=== PATIENT | male | born 1960 | race Caucasian/White ===

== ENCOUNTER → 2017-08-26 | Outpatient (CLI) | payer BC | END | disposition home or self-care (01) | LOC: LABWHC1 12:20 | PROVIDERS: ATTEND Internal Medicine Cardiovascular Disease | DX: E78.5 Hyperlipidemia, unspecified (principal) | CPT/HCPCS: 36415; 83704 ==

== ENCOUNTER 2017-11-10 13:34 | Emergency (ER) | payer BC ==
[2017-11-10 13:51] VITALS: RESP 18; TEMP 98.3
[2017-11-10 14:25] LABS: Basophils % (A) 0 %; Eosinophils # (A) 0.1 k/uL (0-0.7); Eosinophils % (A) 2 %; HCT 49.2 % (39.0-53.0); HGB 16.4 gm/dL (13.0-17.5); Lymphocytes # (A) 1.9 k/uL (1.0-4.8); Lymphocytes % (A) 33 %; MCH 29.8 pg (25.0-35.0); MCHC 33.4 g/dL (31.0-37.0); MCV 89.4 fL (80.0-100.0); Mean Platelet Volume 7.2; Monocytes # (A) 0.3 k/uL (0-1.0); Monocytes % (A) 5 %; Neutrophils # (A) 3.3 k/uL (1.3-7.7); Neutrophils % (A) 58 %; Platelet Count 250 k/uL (150-450); RBC 5.51 m/uL (4.30-5.90); RDW 13.3 % (11.5-15.5); WBC 5.7 k/uL (3.8-10.6)
--- NOTE | 2017-11-10 14:34 | ED ---
General Adult HPI - General Chief complaint: Chest Pain Stated complaint: chest pain Time Seen by Provider: 11/10/17 14:06 Source: patient, RN notes reviewed, old records reviewed Mode of arrival: wheelchair Limitations: no limitations - History of Present Illness Initial comments: 56-year-old male presents for evaluation of chest pain. Pain began approximately 2 hours prior to arrival. This was a single episode of sharp central chest pain. No radiation. No nausea vomiting. No diaphoresis. Episode lasted just seconds. Describes pain as moderate. Patient has no known history of coronary artery disease. No history of DVT or PE. He is quite active, runs on the treadmill, does not experience pain with activity. No dyspnea. No abdominal pain. Patient is chest pain-free at the time my evaluation. Episode lasted just seconds. - Related Data Home Medications Medication Instructions Recorded Confirmed Simvastatin 40 mg PO HS 11/10/17 11/10/17 Allergies Allergy/AdvReac Type Severity Reaction Status Date / Time almond Allergy Anaphylaxis Verified 11/10/17 14:39 Review of Systems ROS Statement: Those systems with pertinent positive or pertinent negative responses have been documented in the HPI. ROS Other: All systems not noted in ROS Statement are negative. Past Medical History Past Medical History: Hyperlipidemia, Thyroid Disorder History of Any Multi-Drug Resistant Organisms: None Reported Past Surgical History: Appendectomy, Tonsillectomy Past Psychological History: No Psychological Hx Reported Smoking Status: Light tobacco smoker Past Alcohol Use History: Occasional Past Drug Use History: None Reported General Exam Limitations: no limitations General appearance: alert, in no apparent distress Head exam: Present: atraumatic, normocephalic Eye exam: Present: normal appearance, PERRL ENT exam: Present: normal exam Neck exam: Present: normal inspection. Absent: tenderness, meningismus Respiratory exam: Present: normal lung sounds bilaterally. Absent: respiratory distress, wheezes, chest wall tenderness Cardiovascular Exam: Present: regular rate, normal rhythm GI/Abdominal exam: Present: soft. Absent: distended, tenderness, guarding Extremities exam: Present: normal inspection, normal capillary refill, other ( Bilateral radial pulses 2+). Absent: pedal edema Back exam: Present: normal inspection Neurological exam: Present: alert, oriented X3, CN II-XII intact. Absent: motor sensory deficit Psychiatric exam: Present: normal affect, normal mood Skin exam: Present: warm, dry, intact. Absent: cyanosis, diaphoretic Course Vital Signs 11/10/17 11/10/17 13:47 14:43 Temperature 98.3 F Pulse Rate 85 75 Respiratory 18 18 Rate Blood Pressure 171/88 149/75 O2 Sat by Pulse 100 98 Oximetry EKG Findings - EKG Comments: EKG Findings:: EKG: Normal sinus rhythm with sinus arrhythmia, rate of 74, OK interval 172, QRS duration 114, QTC 417. No ST segment elevation or depression , T waves are upright Medical Decision Making - Medical Decision Making 56-year-old male with an episode of central chest pain. Pain was moderate, lasted several seconds, resolved at the time my evaluation. Patient has no complaints. EKG is nonischemic. Chest x-ray negative for airspace disease, pneumothorax. CBC within normal limits, d-dimer is negative, electrolytes within normal limits, troponin is negative. Heart score is 2, for age and risk factors. Patient is reevaluated, stable vital signs, he has no pain. He did not require any pain medication the emergency department. He is offered observation for serial cardiac enzymes and cardiology consultation. He declines. He prefers outpatient follow-up. He is informed that this is likely not his heart but complete testing of his heart has not been performed in the emergency department. Diagnosis: Episode of chest pain. - Lab Data Result diagrams: 11/10/17 14:08 11/10/17 14:08 Lab Results 11/10/17 11/10/17 11/10/17 Range/Units 14:08 14:08 14:08 WBC 5.7 (3.8-10.6) k/uL RBC 5.51 (4.30-5.90) m/uL Hgb 16.4 (13.0-17.5) gm/dL Hct 49.2 (39.0-53.0) % MCV 89.4 (80.0-100.0) fL MCH 29.8 (25.0-35.0) pg MCHC 33.4 (31.0-37.0) g/dL RDW 13.3 (11.5-15.5) % Plt Count 250 (150-450) k/uL Neutrophils % 58 % Lymphocytes % 33 % Monocytes % 5 % Eosinophils % 2 % Basophils % 0 % Neutrophils # 3.3 (1.3-7.7) k/uL Lymphocytes # 1.9 (1.0-4.8) k/uL Monocytes # 0.3 (0-1.0) k/uL Eosinophils # 0.1 (0-0.7) k/uL Basophils # 0.0 (0-0.2) k/uL PT (9.0-12.0) sec INR (<1.2) APTT (22.0-30.0) sec D-Dimer (<0.60) mg/L FEU Sodium 141 (137-145) mmol/L Potassium 4.2 (3.5-5.1) mmol/L Chloride 109 H (98-107) mmol/L Carbon Dioxide 25 (22-30) mmol/L Anion Gap 7 mmol/L BUN 11 (9-20) mg/dL Creatinine 0.90 (0.66-1.25) mg/dL Est GFR (CKD-EPI)AfAm >90 (>60 ml/min/1.73 sqM) Est GFR (CKD-EPI)NonAf >90 (>60 ml/min/1.73 sqM) Glucose 135 H (74-99) mg/dL Calcium 9.2 (8.4-10.2) mg/dL Magnesium 1.9 (1.6-2.3) mg/dL Total Bilirubin 0.5 (0.2-1.3) mg/dL AST 31 (17-59) U/L ALT 46 (21-72) U/L Alkaline Phosphatase 63 (38-126) U/L Total Creatine Kinase 133 (55-170) U/L CK-MB (CK-2) 0.7 (0.0-2.4) ng/mL CK-MB (CK-2) Rel Index 0.5 Troponin I <0.012 (0.000-0.034) ng/mL NT-Pro-B Natriuret Pep pg/mL Total Protein 6.6 (6.3-8.2) g/dL Albumin 4.2 (3.5-5.0) g/dL Lipase 246 (23-300) U/L 11/10/17 11/10/17 Range/Units 14:08 14:08 WBC (3.8-10.6) k/uL RBC (4.30-5.90) m/uL Hgb (13.0-17.5) gm/dL Hct (39.0-53.0) % MCV (80.0-100.0) fL MCH (25.0-35.0) pg MCHC (31.0-37.0) g/dL RDW (11.5-15.5) % Plt Count (150-450) k/uL Neutrophils % % Lymphocytes % % Monocytes % % Eosinophils % % Basophils % % Neutrophils # (1.3-7.7) k/uL Lymphocytes # (1.0-4.8) k/uL Monocytes # (0-1.0) k/uL Eosinophils # (0-0.7) k/uL Basophils # (0-0.2) k/uL PT 9.9 (9.0-12.0) sec INR 1.0 (<1.2) APTT 22.6 (22.0-30.0) sec D-Dimer 0.22 (<0.60) mg/L FEU Sodium (137-145) mmol/L Potassium (3.5-5.1) mmol/L Chloride (98-107) mmol/L Carbon Dioxide (22-30) mmol/L Anion Gap mmol/L BUN (9-20) mg/dL Creatinine (0.66-1.25) mg/dL Est GFR (CKD-EPI)AfAm (>60 ml/min/1.73 sqM) Est GFR (CKD-EPI)NonAf (>60 ml/min/1.73 sqM) Glucose (74-99) mg/dL Calcium (8.4-10.2) mg/dL Magnesium (1.6-2.3) mg/dL Total Bilirubin (0.2-1.3) mg/dL AST (17-59) U/L ALT (21-72) U/L Alkaline Phosphatase (38-126) U/L Total Creatine Kinase (55-170) U/L CK-MB (CK-2) (0.0-2.4) ng/mL CK-MB (CK-2) Rel Index Troponin I (0.000-0.034) ng/mL NT-Pro-B Natriuret Pep 76 pg/mL Total Protein (6.3-8.2) g/dL Albumin (3.5-5.0) g/dL Lipase (23-300) U/L Disposition Clinical Impression: Chest pain Disposition: HOME SELF-CARE Condition: Good Instructions: Chest Pain (ED) Is patient prescribed a controlled substance at d/c from ED?: No Referrals: Yessy Pierre MD [Primary Care Provider] - 1-2 days Radha Khan MD [STAFF PHYSICIAN] - 1-2 days Time of Disposition: 15:15
[2017-11-10 14:37] LABS: ALT 46 U/L (21-72); AST 31 U/L (17-59); Albumin 4.2 g/dL (3.5-5.0); Alkaline Phosphatase 63 U/L (38-126); Anion Gap 7 mmol/L; Blood Urea Nitrogen 11 mg/dL (9-20); Calcium 9.2 mg/dL (8.4-10.2); Carbon Dioxide 25 mmol/L (22-30); Chloride 109 mmol/L (98-107); D-Dimer 0.22 mg/L FEU (<0.60); Glucose 135 mg/dL (74-99); Lipase 246 U/L (23-300); Magnesium 1.9 mg/dL (1.6-2.3); Partial Thromboplastin Time 22.6 sec (22.0-30.0); Potassium 4.2 mmol/L (3.5-5.1); Prothrombin Time 9.9 sec (9.0-12.0); Sodium 141 mmol/L (137-145); Total Bilirubin 0.5 mg/dL (0.2-1.3); Total Protein 6.6 g/dL (6.3-8.2)
--- NOTE | 2017-11-10 14:45 | XR ---
EXAMINATION TYPE: XR chest 2V DATE OF EXAM: 11/10/2017 COMPARISON: Chest x-ray September 13, 2011 HISTORY: Chest pain. TECHNIQUE: Frontal and lateral views of the chest are obtained. FINDINGS: There is no focal air space opacity, pleural effusion, or pneumothorax seen. The cardiac silhouette size is within normal limits. The osseous structures are intact. IMPRESSION: No acute process. No significant change from prior.
[2017-11-10 14:51] LABS: Creatine Kinase 133 U/L (55-170)
[2017-11-10 15:02] LABS: Creatine Kinase MB 0.7 ng/mL (0.0-2.4); Troponin I <0.012 ng/mL (0.000-0.034)
[2017-11-10 15:41] VITALS: BP 153/77; PULSE 63
== END 2017-11-10 15:40 | disposition home or self-care (01) ==
LOC: EC 13:34
DX: R07.9 Chest pain, unspecified (principal); E78.5 Hyperlipidemia, unspecified; F17.200 Nicotine dependence, unspecified, uncomplicated; Z79.899 Other long term (current) drug therapy; Z91.018 Allergy to other foods
CPT/HCPCS: 36415; 71046; 80053; 82550; 82553; 83690; 83735; 83880; 84484; 85025; 85379; 85610; 85730; 99285

== ENCOUNTER 2019-02-16 04:24 | Emergency (ER) | payer BC ==
[2019-02-16 04:34] VITALS: BP 154/89; PULSE 92; RESP 18; TEMP 98.7
[2019-02-16] MEDS ORDERED: TRANEXAMIC ACID 1,000 MG in SODIUM CHLORIDE 0.9% 100 ML IVPB ONE (04:49)
--- NOTE | 2019-02-16 04:53 | ED ---
General Adult HPI - General Chief complaint: Recheck/Abnormal Lab/Rx Stated complaint: hemorrhoids Time Seen by Provider: 02/16/19 04:42 Source: patient Mode of arrival: ambulatory Limitations: no limitations - History of Present Illness Initial comments: This patient is a 58-year-old man who presents to be evaluated for a hemorrhoid that is bleeding. Patient noticed that he had developed swelling and tender hemorrhoid on . He states that he had taken a bath yesterday and then it had seemed to rupture. He states this has happened previously and he has had bleeding go on for about an hour. With this hemorrhoid the bleeding has continued through to this morning. He was concerned that it was bleeding for 2 long. He states that it will stop a bit but then when he has bowel movement there is further bleeding. Patient is denying symptoms of anemia, including no orthostatic type symptoms. No lightheadedness, chest pain, dyspnea, pal pitations or syncope. No diaphoresis, nausea or vomiting. There is no abdominal pain. He states that the pain related to the hemorrhoid had stopped. -: days(s) Location: buttocks Radiation: non-radiation Improves with: none Worsens with: none Treatments Prior to Arrival: none - Related Data Home Medications Medication Instructions Recorded Confirmed Simvastatin 40 mg PO HS 11/10/17 11/10/17 Previous Rx's Medication Instructions Recorded Hydrocortisone Pr Cream 1 applic RECTAL BID #1 tube 02/16/19 [Proctosol-Hc 2.5%] Allergies Allergy/AdvReac Type Severity Reaction Status Date / Time almond Allergy Anaphylaxis Verified 02/16/19 04:34 Review of Systems ROS Statement: Those systems with pertinent positive or pertinent negative responses have been documented in the HPI. ROS Other: All systems not noted in ROS Statement are negative. Constitutional: Denies: fever, chills Respiratory: Denies: cough, dyspnea Cardiovascular: Denies: chest pain, palpitations, syncope Gastrointestinal: Denies: abdominal pain, nausea, vomiting Hematological/Lymphatic: Denies: easy bleeding Past Medical History Past Medical History: Hyperlipidemia, Thyroid Disorder History of Any Multi-Drug Resistant Organisms: None Reported Past Surgical History: Appendectomy, Tonsillectomy Past Psychological History: No Psychological Hx Reported Smoking Status: Light tobacco smoker Past Alcohol Use History: Occasional Past Drug Use History: None Reported General Exam Limitations: no limitations General appearance: alert, in no apparent distress Respiratory exam: Present: normal lung sounds bilaterally. Absent: respiratory distress, wheezes, rales, rhonchi, stridor Cardiovascular Exam: Present: regular rate, normal rhythm, normal heart sounds. Absent: systolic murmur, diastolic murmur, rubs, gallop GI/Abdominal exam: Present: soft. Absent: distended, tenderness, guarding, rebound, pulsatile mass Rectal exam: Present: hemorrhoids (Patient does have an approximately 1 cm external hemorrhoid which has had some recent bleeding but there is currently no active blood.) Skin exam: Present: warm, dry, intact, normal color. Absent: rash Course Vital Signs 02/16/19 04:31 Temperature 98.7 F Pulse Rate 92 Respiratory 18 Rate Blood Pressure 154/89 O2 Sat by Pulse 100 Oximetry Medical Decision Making - Lab Data Result diagrams: 02/16/19 05:07 Lab Results 02/16/19 02/16/19 Range/Units 05:07 05:07 WBC 6.6 (3.8-10.6) k/uL RBC 5.21 (4.30-5.90) m/uL Hgb 16.0 (13.0-17.5) gm/dL Hct 47.0 (39.0-53.0) % MCV 90.1 (80.0-100.0) fL MCH 30.6 (25.0-35.0) pg MCHC 34.0 (31.0-37.0) g/dL RDW 12.6 (11.5-15.5) % Plt Count 246 (150-450) k/uL Neutrophils % 67 % Lymphocytes % 24 % Monocytes % 6 % Eosinophils % 1 % Basophils % 0 % Neutrophils # 4.4 (1.3-7.7) k/uL Lymphocytes # 1.6 (1.0-4.8) k/uL Monocytes # 0.4 (0-1.0) k/uL Eosinophils # 0.1 (0-0.7) k/uL Basophils # 0.0 (0-0.2) k/uL PT 10.2 (9.0-12.0) sec INR 0.9 (<1.2) APTT 23.6 (22.0-30.0) sec Disposition Clinical Impression: External hemorrhoid, bleeding Disposition: HOME SELF-CARE Condition: Good Prescriptions: Hydrocortisone Pr Cream [Proctosol-Hc 2.5%] 1 applic RECTAL BID #1 tube Is patient prescribed a controlled substance at d/c from ED?: No Referrals: Yessy Pierre MD [Primary Care Provider] - 1-2 days Kedar Nguyen MD [STAFF PHYSICIAN] - 1-2 days
[2019-02-16 05:30] LABS: Basophils % (A) 0 %; Eosinophils # (A) 0.1 k/uL (0-0.7); Eosinophils % (A) 1 %; Lymphocytes # (A) 1.6 k/uL (1.0-4.8); Lymphocytes % (A) 24 %; MCH 30.6 pg (25.0-35.0); MCV 90.1 fL (80.0-100.0); Mean Platelet Volume 6.5; Monocytes # (A) 0.4 k/uL (0-1.0); Monocytes % (A) 6 %; Neutrophils # (A) 4.4 k/uL (1.3-7.7); Neutrophils % (A) 67 %; Platelet Count 246 k/uL (150-450); RBC 5.21 m/uL (4.30-5.90); RDW 12.6 % (11.5-15.5); WBC 6.6 k/uL (3.8-10.6)
[2019-02-16 05:36] LABS: INR 0.9 (<1.2); Partial Thromboplastin Time 23.6 sec (22.0-30.0); Prothrombin Time 10.2 sec (9.0-12.0)
== END 2019-02-16 06:15 | disposition home or self-care (01) ==
LOC: EC 04:24
DX: K64.4 Residual hemorrhoidal skin tags (principal); E78.5 Hyperlipidemia, unspecified; F17.200 Nicotine dependence, unspecified, uncomplicated; Z91.018 Allergy to other foods; Z79.899 Other long term (current) drug therapy
CPT/HCPCS: 36415; 85025; 85610; 85730; 96374; 99283

== ENCOUNTER 2019-03-04 07:44 | Day surgery (SDC) | payer BC ==
[2019-03-03 10:09] VITALS: BMI 29.4
[~2019-03-04 07:44] MED LIST: LACTATED RINGERS 1,000 ML IV SCH; LIDOCAINE 1% 20 ML VIAL (10MG/ML) FOR IV START INTRADERMA PRN; ONDANSETRON 4 MG/2 ML VIAL IVP ONE
[2019-03-04 08:20] VITALS: TEMP 97.6
[2019-03-04 08:21] LABS: Glucose,Whole Blood 101 mg/dL (75-99)
[2019-03-04] MEDS ORDERED: PROPOFOL 10 MG/ML 20 ML VIAL IV ONE (08:42)
[2019-03-04] MEDS ORDERED: GLYCOPYRROLATE 0.2 MG/ML 2 ML VIAL ONE (08:42)
[2019-03-04] MEDS ORDERED: LIDOCAINE 1% INJ 10MG/ML (20 ML MDV) ONE (08:42)
--- NOTE | 2019-03-04 08:59 | P.GSHP ---
History of Present Illness H&P Date: 03/04/19 Chief Complaint: GI bleed, hemorrhoids This a 4-year-old male who presents today for colonoscopy. Patient is history of GI bleed he has known internal and external hemorrhoids. Past Medical History Past Medical History: Hyperlipidemia, Hypertension, Thyroid Disorder Additional Past Medical History / Comment(s): hemorrhoids,hypoglycemia History of Any Multi-Drug Resistant Organisms: None Reported Past Surgical History: Appendectomy, Tonsillectomy Additional Past Surgical History / Comment(s): colonoscopy,mult lipomas removed Past Anesthesia/Blood Transfusion Reactions: No Reported Reaction Additional Past Anesthesia/Blood Transfusion Reaction / Comment(s): no hx blood transfusion Smoking Status: Former smoker - Past Family History Mother Family Medical History: No Reported History Medications and Allergies Home Medications Medication Instructions Recorded Confirmed Type Simvastatin 40 mg PO HS 11/10/17 03/04/19 History Hydrocortisone Pr Cream 1 applic RECTAL BID #1 tube 02/16/19 03/04/19 Rx [Proctosol-Hc 2.5%] Losartan Potassium 50 mg PO HS 03/03/19 03/04/19 History Multivitamins, Thera [Multivitamin 1 tab PO DAILY 03/03/19 03/04/19 History (formulary)] Allergies Allergy/AdvReac Type Severity Reaction Status Date / Time almond Allergy Anaphylaxis Verified 03/04/19 07:57 Surgical - Exam Vital Signs Temp Pulse Resp BP Pulse Ox 97.6 F 87 16 139/75 100 03/04/19 08:15 03/04/19 08:15 03/04/19 08:15 03/04/19 08:15 03/04/19 08:15 - General well developed, well nourished, no distress - Eyes PERRL - ENT normal pinna - Neck no masses - Respiratory normal expansion - Cardiovascular Rhythm: regular - Abdomen Abdomen: soft, non tender Results - Labs Abnormal Lab Results - Last 24 Hours (Table) 03/04/19 Range/Units 08:16 POC Glucose (mg/dL) 101 H (75-99) mg/dL Assessment and Plan Assessment: GI bleed Internal and external hemorrhoids We'll perform colonoscopy
--- NOTE | 2019-03-04 09:16 | P.OP ---
Date of Procedure: 03/04/19 Preoperative Diagnosis: GI bleed Hemorrhoids Postoperative Diagnosis: Diverticulosis Internal hemorrhoids Procedure(s) Performed: Colonoscopy Anesthesia: MAC Surgeon: Kedar Nguyen Pathology: none sent Condition: stable Disposition: PACU Description of Procedure: Patient's placed on the endoscopy table in the lateral position. He received IV sedation. Digital rectal exam was performed which revealed internal hemorrhoids. Flexible colonoscope was then placed patient anus and passed throughout the entire colon. The ileocecal valve was visualized. The cecum, ascending and transverse colon appeared normal. In the descending and sigmoid colon was moderate diverticular changes. Scope was then brought back the rectum and this appeared normal. Scope was withdrawn for patient. Internal hemorrhoids are noted at the anus.
[2019-03-04 09:41] VITALS: BP 107/73; PULSE 58; RESP 18
== END 2019-03-04 10:00 | disposition home or self-care (01) ==
LOC: ORWHC2ENDO 07:44
PROVIDERS: ATTEND Surgery
DX: K57.31 Diverticulosis of large intestine without perforation or abscess with bleeding (principal); K64.8 Other hemorrhoids; E78.5 Hyperlipidemia, unspecified; I10 Essential (primary) hypertension; E07.9 Disorder of thyroid, unspecified; K21.9 Gastro-esophageal reflux disease without esophagitis; Z86.39 Personal history of other endocrine, nutritional and metabolic disease; Z90.49 Acquired absence of other specified parts of digestive tract; Z90.89 Acquired absence of other organs; Z98.890 Other specified postprocedural states; Z87.891 Personal history of nicotine dependence; Z79.899 Other long term (current) drug therapy; Z79.52 Long term (current) use of systemic steroids; Z91.018 Allergy to other foods; Z87.19 Personal history of other diseases of the digestive system
CPT/HCPCS: 45378; J2001; J2704

== ENCOUNTER → 2020-04-11 | Outpatient (CLI) | payer BC | END | disposition home or self-care (01) | LOC: LABPAT 09:44 | PROVIDERS: ATTEND Surgery | DX: Z20.828 Contact with and (suspected) exposure to other viral communicable diseases (principal) | CPT/HCPCS: U0003; C9803 ==

== ENCOUNTER → 2020-04-12 | Outpatient (CLI) | payer BC ==
[2020-04-12 10:24] LABS: HCT 50.6 % (39.0-53.0); HGB 16.9 gm/dL (13.0-17.5); MCH 30.7 pg (25.0-35.0); MCHC 33.5 g/dL (31.0-37.0); MCV 91.6 fL (80.0-100.0); Mean Platelet Volume 7.7; Platelet Count 229 k/uL (150-450); RBC 5.52 m/uL (4.30-5.90); RDW 12.5 % (11.5-15.5); WBC 6.1 k/uL (3.8-10.6)
== END | disposition home or self-care (01) ==
LOC: LABPAT 09:36
PROVIDERS: ATTEND Surgery
DX: Z01.818 Encounter for other preprocedural examination (principal)
CPT/HCPCS: 85027; 93005

== ENCOUNTER → 2020-04-18 | Day surgery (SDC) | payer BC ==
[2020-04-12 09:35] VITALS: BMI 29.4
[~2020-04-18] MED LIST changes: +DEXAMETHASONE SOD PHOSPHATE 4 MG/ML 1 ML VIAL IV ONE; +GLYCOPYRROLATE 0.2 MG/ML 2 ML VIAL ONE; +HEPARIN SODIUM,PORCINE 5,000 UNIT/ML 1 ML VIAL SQ PRN; +HYDROmorphone (PF) 1 MG/ML ONE; +KETOROLAC 15 MG/ML 1 ML VIAL IVP ONE; +LACTATED RINGERS 1,000 ML IV ONE; -LIDOCAINE 1% 20 ML VIAL (10MG/ML) FOR IV START INTRADERMA PRN; +LIDOCAINE 1% INJ 10MG/ML (20 ML MDV) ONE; +LIDOCAINE 1%-EPI 1:100,000 20 ML VIAL SQ ONE; +MIDAZOLAM 2 MG/2 ML VIAL ONE; +NEOSTIGMINE 1 MG/ML 10 ML VIAL ONE; +PROPOFOL 10 MG/ML 20 ML VIAL IV ONE; +ROCURONIUM 10 MG/ML (10 ML VIAL) IV ONE; +SUCCINYLCHOLINE CHLORIDE 100 MG/5 ML SYR IV ONE; +TAMSULOSIN 0.4 MG CAP.ER.24H PO ONE; +ePHEDrine SULFATE/0.9% NACL/PF 50 MG/5 ML SYRINGE IV ONE; +fentaNYL (PF) 50 MCG/ML 2 ML AMP ONE
--- NOTE | 2020-04-18 12:34 | P.OP ---
Date of Procedure: 04/18/20 Preoperative Diagnosis: Bilateral inguinal hernia Postoperative Diagnosis: Bilateral direct inguinal hernia Procedure(s) Performed: Bilateral inguinal hernia repair with mesh, robotic Anesthesia: FANNYA Surgeon: Mary Lou Fernando Pathology: none sent Condition: stable Disposition: same day Indications for Procedure: 59-year-old male presented to the surgical clinic with complaint of groin pain. On exam, he was found to have bilateral inguinal hernia. Due to the discomfort, plan was made for surgical intervention. Plan was made for robotic bilateral inguinal hernia. The patient was explained risks, benefits and alternatives to the procedure and did provide consent prior to attending the operating suite. Operative Findings: Bilateral direct inguinal hernias Description of Procedure: The patient was brought back to the operating suite and placed in supine position. After general endotracheal anesthesia was induced, arms were tucked to the sides bilaterally and all pressure points were padded. SCDs were also placed in bilateral lower extremities and were working throughout the entire case. Preoperative antibiotics were given prior to the incision. A timeout was performed without team members in agreement with correct patient, procedure and location. A supra umbilical incision was made approximately 20cm superior to the pubic symphysis. Dissection was carried to the fascia, the fascia was incised. An 8 mm port was then placed. At this point pneumoperitoneum was achieved. 2 additional incisions were made approximately 11 cm lateral to the supraumbilical incision and 8 millimeter trochars were placed. The patient was then placed in Trendelenburg position and the hernia sites were clearly visualized bilaterally. Both were noted to be direct inguinal hernias. 30 mL of local anesthetic was then placed in the anticipated peritoneal layer of the anticipated flap. The robot was then docked appropriately. Incision was then made just lateral to the medial umbilical ligament on the right side with monopolar scissors and the peritoneal flap was created and was taken down towards Brayan's ligament. The flap was then extended laterally. Attention was then turned to the direct inguinal hernia. The sac was freed from the surrounding cord structures. At this point the direct hernia was reduced. Once the entire space was appropriately dissected out, attention was turned to the left side. Incision was then made just lateral to the medial umbilical ligament on the left side with the monopolar scissors and the peritoneal flap was created and was taken down towards Brayan's ligament. The flap was then extended l aterally. Attention was then turned to the direct inguinal hernia. The sac was freed from the surrounding cord structures. At this point, once the entire space was appropriately dissected out, we brought the laparoscopic anatomic parietex progrip mesh and unrolled it over the hernia sites. Once appropriately in place, the peritoneal flap was closed using running 20 be lock sutures. Once this was completed, removed all robotic instrument and undocked the robot. The supra umbilical fascial incision was closed with an 0 Vicryl suture using a Koko Eddy device under direct visualization. All skin incisions were then closed with 4-0 Vicryl suture. The patient was awakened and taken to recovery unit in stable condition.
[2020-04-18 12:42] VITALS: TEMP 97.7
[2020-04-18] MEDS: HYDROmorphone 0.5 MG/0.5 ML SYRINGE IVP PRN ×4 (12:42→13:08)
[2020-04-18 14:17] VITALS: RESP 18
[2020-04-18 18:58] VITALS: BP 123/81; PULSE 95
== END | disposition home or self-care (01) ==
LOC: OR 09:50
PROVIDERS: ATTEND Surgery
DX: K40.20 Bilateral inguinal hernia, without obstruction or gangrene, not specified as recurrent (principal); I10 Essential (primary) hypertension; E78.5 Hyperlipidemia, unspecified; Z91.018 Allergy to other foods; Z79.899 Other long term (current) drug therapy; Z98.890 Other specified postprocedural states; Z87.19 Personal history of other diseases of the digestive system
CPT/HCPCS: 49650; C1781; J2250; J1644; J1100; J2710; J0690; J2405; J2001; J3010; J1170 ×2; J1885; J0330; J2704; 36415; 86850; 86900; 86901